=== PATIENT | male | born 1940 | race Caucasian/White ===

== ENCOUNTER 2016-06-04 14:42 | Inpatient (IN) | payer MEDICARE, BC ==
[~2016-06-04] VITALS: Ht 165.1 cm; Wt 81.9 kg
[2016-06-04] MEDS ORDERED: DEXTROSE 50% SYRINGE 50 ML IV PRN (17:05)
[2016-06-04] MEDS ORDERED: GLUCAGON 1 MG VIAL IM PRN (17:05)
[2016-06-04] MEDS ORDERED: SALINE FLUSH 10 ML FLUSH PRN (17:05)
[2016-06-04] MEDS: TAMSULOSIN 0.4 MG CAP PO SCH (18:24)
[2016-06-04] MEDS: PAROXETINE HCL 10 MG TAB PO SCH (18:24)
[2016-06-04 18:40] VITALS: BP_SYST 140; RESP 18; TEMP 97.8
[2016-06-04 18:42] VITALS: Ht 165.1 cm; Wt 81.9 kg
[2016-06-04] MEDS: SODIUM CHLORIDE 0.9% 1,000 ML IV SCH (18:47)
[2016-06-04 19:33] VITALS: BP_SYST 160; RESP 18; TEMP 98
[2016-06-04] MEDS: SALINE FLUSH 10 ML FLUSH SCH (20:00)
[2016-06-04] MEDS ORDERED: *PINK BRACELET XX ONE (21:15)
[2016-06-04 23:47] VITALS: RESP 18
[2016-06-04 23:49] VITALS: BP_SYST 129; RESP 18; TEMP 97.7
[2016-06-05 03:30] VITALS: BP_SYST 149; RESP 18; TEMP 97.5
[2016-06-05] MEDS: SODIUM CHLORIDE 0.9% 1,000 ML IV SCH ×2 (04:53→19:19)
[2016-06-05] MEDS: SODIUM CHLORIDE 0.9% FLUSH BAG 500 ML IV SCH (05:28)
[2016-06-05 07:35] VITALS: BP_SYST 155; RESP 18; TEMP 97.8
[2016-06-05] MEDS: *HOME MEDS KEPT IN PHARMACY XX SCH ×2 (08:00→20:00)
[2016-06-05] MEDS: TAMSULOSIN 0.4 MG CAP PO SCH (09:00)
[2016-06-05] MEDS: PAROXETINE HCL 10 MG TAB PO SCH (09:26)
[2016-06-05] MEDS: SALINE FLUSH 10 ML FLUSH SCH ×2 (09:28→20:00)
[2016-06-05 11:22] VITALS: BP_SYST 168; RESP 18; TEMP 97.8
[2016-06-05] MEDS: ALPRAZOLAM 0.25 MG TAB PO PRN ×2 (15:07→23:41)
[2016-06-05 16:24] VITALS: BP_SYST 154; RESP 18; TEMP 97.9
[2016-06-05] MEDS: amLODIPine 10 MG TAB PO SCH (19:19)
[2016-06-05 19:23] VITALS: BP_SYST 159; RESP 18; TEMP 98
[2016-06-05] MEDS: *HOME MEDS IN MED CART XX SCH (20:00)
[2016-06-05] MEDS: SYMBICORT INH SCH (20:58)
[2016-06-05] MEDS: ALBUTEROL INH SCH ×2 (20:58→23:41)
[2016-06-05] MEDS: cloNIDine 0.2 MG TAB PO SCH (20:59)
[2016-06-05 23:16] VITALS: BP_SYST 141; RESP 18; TEMP 97.6
[2016-06-06 03:35] VITALS: BP_SYST 142; RESP 18; TEMP 97.8
[2016-06-06] MEDS: SODIUM CHLORIDE 0.9% FLUSH BAG 500 ML IV SCH (05:06)
[2016-06-06] MEDS: SODIUM CHLORIDE 0.9% 1,000 ML IV SCH ×2 (05:10→23:49)
[2016-06-06] MEDS: ALBUTEROL INH SCH ×4 (06:05→23:00)
[2016-06-06] MEDS: SYMBICORT INH SCH ×2 (06:05→22:15)
[2016-06-06 07:37] VITALS: BP_SYST 147; RESP 18; TEMP 98
[2016-06-06] MEDS: *HOME MEDS IN MED CART XX SCH ×2 (08:00→21:10)
[2016-06-06] MEDS: *HOME MEDS KEPT IN PHARMACY XX SCH ×2 (08:00→21:09)
[2016-06-06] MEDS: TAMSULOSIN 0.4 MG CAP PO SCH ×2 (09:00→09:32)
[2016-06-06] MEDS: SALINE FLUSH 10 ML FLUSH SCH ×2 (09:30→21:10)
[2016-06-06] MEDS: PAROXETINE HCL 10 MG TAB PO SCH (09:32)
[2016-06-06] MEDS: amLODIPine 10 MG TAB PO SCH (09:32)
[2016-06-06] MEDS: cloNIDine 0.2 MG TAB PO SCH ×2 (09:32→21:09)
[2016-06-06 11:04] VITALS: BP_SYST 141; RESP 18; TEMP 97.6
[2016-06-06] MEDS ORDERED: MISSING DOSE XX ONE (11:40)
[2016-06-06] MEDS: ALPRAZOLAM 0.25 MG TAB PO PRN (13:55)
[2016-06-06] MEDS: GABAPENTIN 100 MG CAP PO SCH ×3 (13:55→21:09)
[2016-06-06 15:08] VITALS: BP_SYST 138; RESP 18; TEMP 97.9
[2016-06-06 20:23] VITALS: BP_SYST 135; RESP 18; TEMP 98.1
[2016-06-06 23:25] VITALS: BP_SYST 135; RESP 18; TEMP 97.8
[2016-06-07 03:33] VITALS: BP_SYST 119; RESP 18; TEMP 97.4
[2016-06-07] MEDS: SODIUM CHLORIDE 0.9% FLUSH BAG 500 ML IV SCH (06:00)
[2016-06-07] MEDS: SYMBICORT INH SCH (07:00)
[2016-06-07] MEDS: ALBUTEROL INH SCH (07:00)
[2016-06-07 07:34] VITALS: BP_SYST 160; RESP 18; TEMP 97.6
[2016-06-07] MEDS: *HOME MEDS IN MED CART XX SCH ×2 (08:00→19:56)
[2016-06-07] MEDS: SALINE FLUSH 10 ML FLUSH SCH ×2 (08:00→20:18)
[2016-06-07] MEDS: *HOME MEDS KEPT IN PHARMACY XX SCH ×2 (08:00→19:56)
[2016-06-07] MEDS: TAMSULOSIN 0.4 MG CAP PO SCH (09:00)
[2016-06-07] MEDS: PAROXETINE HCL 10 MG TAB PO SCH (09:04)
[2016-06-07] MEDS: amLODIPine 10 MG TAB PO SCH (09:05)
[2016-06-07] MEDS: cloNIDine 0.2 MG TAB PO SCH ×2 (09:05→20:17)
[2016-06-07] MEDS: GABAPENTIN 100 MG CAP PO SCH ×3 (09:05→20:17)
[2016-06-07] MEDS: SODIUM CHLORIDE 0.9% 1,000 ML IV SCH ×2 (09:49→19:52)
[2016-06-07] MEDS ORDERED: BISACODYL EC 5 MG TAB PO ONE (10:45)
[2016-06-07 11:06] VITALS: BP_SYST 133; RESP 16; TEMP 97.7
[2016-06-07 15:13] VITALS: BP_SYST 131; RESP 18; TEMP 97.8
[2016-06-07 19:41] VITALS: BP_SYST 127; RESP 16; TEMP 98.5
[2016-06-07] MEDS: ALPRAZOLAM 0.25 MG TAB PO PRN (20:17)
[2016-06-07 23:53] VITALS: BP_SYST 117; RESP 18; TEMP 98
[2016-06-08 03:25] VITALS: BP_SYST 119; RESP 16; TEMP 97.8
[2016-06-08] MEDS: SODIUM CHLORIDE 0.9% FLUSH BAG 500 ML IV SCH (04:44)
[2016-06-08] MEDS: SODIUM CHLORIDE 0.9% 1,000 ML IV SCH (05:16)
[2016-06-08 07:43] VITALS: BP_SYST 162; RESP 16; TEMP 97.5
[2016-06-08] MEDS: cloNIDine 0.2 MG TAB PO SCH (07:45)
[2016-06-08] MEDS: TAMSULOSIN 0.4 MG CAP PO SCH (07:45)
[2016-06-08] MEDS: GABAPENTIN 100 MG CAP PO SCH (07:45)
[2016-06-08] MEDS: amLODIPine 10 MG TAB PO SCH (07:45)
[2016-06-08] MEDS: PAROXETINE HCL 10 MG TAB PO SCH (07:45)
[2016-06-08] MEDS: ALBUTEROL INH SCH (07:46)
[2016-06-08] MEDS: SYMBICORT INH SCH (07:46)
[2016-06-08] MEDS: SALINE FLUSH 10 ML FLUSH SCH (07:50)
[2016-06-08] MEDS: *HOME MEDS IN MED CART XX SCH (07:51)
[2016-06-08] MEDS: *HOME MEDS KEPT IN PHARMACY XX SCH (07:51)
[2016-06-08 12:46] VITALS: BP_SYST 141; RESP 16; TEMP 97.6
[2016-06-08 14:55] VITALS: BP_SYST 141; RESP 16; TEMP 97.6
== END 2016-06-08 15:32 | disposition home or self-care (01) | DRG 813 ==
LOC: ENRESERVDT → ENRESERVTM → ER 14:42 → EMR 17:21 → DELPENDDIS 17:21 → ENPENDDIS 17:21 → 4THW 18:21
PROVIDERS: ADMIT Internal Medicine; ATTEND Internal Medicine
CPT/HCPCS: 36415; 80053; 81001; 82553; 82947; 83605; 84484; 85025; 87040; 94640; 94799; 99219; 99225; 99232; 99239; 99255